=== PATIENT | female | born 1975 | race Caucasian/White ===

== ENCOUNTER 2018-03-14 05:20 | Emergency (ER) | payer OTHER ==
[~2018-03-14] VITALS: Ht 165.1 cm; Wt 67.1 kg
[2018-03-14] MEDS ORDERED: JANUVIA100 MG (05:32)
[2018-03-14] MEDS ORDERED: VITAMIN D5000 UNIT (05:32)
[2018-03-14] MEDS ORDERED: FOLIC ACID1 MG (05:33)
[2018-03-14] MEDS ORDERED: HIERRO (05:35)
[2018-03-14] MEDS ORDERED: AMARIL (05:35)
[2018-03-14] MEDS ORDERED: PNEU16DI2 (05:36)
== END 2018-03-14 12:17 | disposition home or self-care (01) ==
LOC: ER 05:20
DX: N93.8 Other specified abnormal uterine and vaginal bleeding (principal)

== ENCOUNTER 2022-03-26 22:22 | Emergency (ER) | payer OTHER ==
[~2022-03-26] VITALS: Ht 165.1 cm; Wt 68.9 kg
[~2022-03-26 22:22] MED LIST: AMARIL; FOLIC ACID1 MG; HIERRO; JANUVIA100 MG; PNEU16DI2; VITAMIN D5000 UNIT
[2022-03-26] MEDS ORDERED: GLIMEPIRIDE4 MG PO (23:38)
== END 2022-03-27 01:09 | disposition home or self-care (01) ==
LOC: ER 22:22
DX: F41.1 Generalized anxiety disorder (principal); R07.89 Other chest pain

== ENCOUNTER 2022-09-01 08:23 | Outpatient (CLI) | payer OTHER ==
[~2022-09-01 08:23] MED LIST changes: +GLIMEPIRIDE4 MG PO
== END 2022-09-01 08:33 | disposition home or self-care (01) ==
LOC: MAMO-SONO 08:23
PROVIDERS: ATTEND Student in an Organized Health Care Education/Training Program
DX: Z12.31 Encounter for screening mammogram for malignant neoplasm of breast (principal); N60.11 Diffuse cystic mastopathy of right breast; N60.12 Diffuse cystic mastopathy of left breast